=== PATIENT | male | born 1940 | race Caucasian/White ===

== ENCOUNTER → 2017-07-12 | Outpatient (CLI) | payer MEDICARE, BC ==
[~2017-07-12] MED LIST: ASPIRIN 81M81 MG/TA2 PO; EQUETRO300MG PO; GLUCOPHAGE500 MG/TAB PO; LOPRESSOR 225 MG/TAB PO; NORVASC 5MG5 MG/TAB PO; PRILOSEC 20MG20 MG PO; TEGRETOL 1100 MG/TAB PO; TEGRETOL 2200 MG/TA1 PO; ZOCOR 20MG20 MG PO
== END ==
LOC: COL.RAD 12:30
DX: R07.9 Chest pain, unspecified (principal); R06.09 Other forms of dyspnea; R79.89 Other specified abnormal findings of blood chemistry
CPT/HCPCS: A9539; A9540

== ENCOUNTER → 2017-11-28 | Outpatient (CLI) | payer MEDICARE, BC | LOC: COL.RAD 12:51 | DX: Z01.812 Encounter for preprocedural laboratory examination (principal); I73.9 Peripheral vascular disease, unspecified; I71.4 Abdominal aortic aneurysm, without rupture; I70.1 Atherosclerosis of renal artery; I70.0 Atherosclerosis of aorta; N18.9 Chronic kidney disease, unspecified; Z95.828 Presence of other vascular implants and grafts | CPT/HCPCS: Q9967 ==

== ENCOUNTER → 2018-01-19 | Outpatient (REF) | LOC: ZLAB.WCH 16:07 | DX: Z01.89 Encounter for other specified special examinations (principal) ==